=== PATIENT | male | born 1970 | race Caucasian/White ===

== ENCOUNTER 2018-11-26 16:28 | Observation (INO) | payer BC ==
--- NOTE | 2018-11-26 17:37 | EDM.PDOC ---
ED HPI GENERAL MEDICAL PROBLEM - General Chief Complaint: Behavioral/Psych Stated Complaint: ALCOHOL RELAPS Time Seen by Provider: 11/26/18 17:25 Source of Information: Reports: Patient, RN History Limitations: Reports: No Limitations - History of Present Illness INITIAL COMMENTS - FREE TEXT/NARRATIVE: 48 yr male presents with alcohol abuse and wants to go to detox. States he hasn 't had his shot since August for the alcohol abstinence. He had been working at [employer] and quit working because of his alcohol use. States he has been to detox many times and most recent in [place]. States no other medications and no use of any other substances. He has been having Jada 2 pints daily and just had a drink before coming into the ER. States he has no good reason for returning to alcohol and states no one to talk to about this. States he was going to AA and then quit because her was going to work. - Related Data Allergies Allergy/AdvReac Type Severity Reaction Status Date / Time No Known Allergies Allergy Verified 11/26/18 17:10 Home Meds: Home Meds NK [No Known Home Meds] 11/26/18 [History] ED ROS GENERAL - Review of Systems Review Of Systems: See Below Constitutional: Reports: No Symptoms HEENT: Reports: No Symptoms Respiratory: Reports: No Symptoms Cardiovascular: Reports: No Symptoms GI/Abdominal: Reports: No Symptoms : Reports: No Symptoms Musculoskeletal: Reports: Other (history of back pain and this has been good since his back injection) Skin: Reports: No Symptoms Neurological: Reports: No Symptoms Psychiatric: Reports: No Symptoms ED EXAM, GI/ABD - Physical Exam Exam: See Below Exam Limited By: No Limitations General Appearance: Alert, No Apparent Distress Ears: Normal External Exam, Hearing Grossly Normal Nose: Normal Inspection, Normal Mucosa Throat/Mouth: Normal Inspection, Normal Voice, No Airway Compromise Head: Atraumatic, Normocephalic Neck: Normal Inspection, Supple, Non-Tender Respiratory/Chest: No Respiratory Distress, Normal Breath Sounds Extremities: Normal Inspection, Normal Range of Motion, Non-Tender Neurological: Alert, Oriented, Normal Cognition Psychiatric: Normal Affect, Normal Mood Skin Exam: Warm, Dry, Normal Color Course - Vital Signs Last Recorded V/S: Last Vital Signs Temp 98.6 F 11/26/18 16:32 Pulse 83 11/26/18 16:32 Resp 20 11/26/18 16:32 BP 141/94 H 11/26/18 16:32 Pulse Ox 97 11/26/18 16:32 - Orders/Labs/Meds Orders: Active Orders 24 hr Category Date Time Status VITAMIN B1 (THIAMINE), BLOOD Stat Lab 11/26/18 17:47 Received Labs: Laboratory Tests 11/26/18 11/26/18 11/26/18 Range/Units 17:30 17:41 17:41 WBC 9.3 (4.0-11.0) K/uL RBC 5.10 (4.50-6.50) M/uL Hgb 17.0 (13.0-18.0) g/dL Hct 47.1 (40.0-54.0) % MCV 92 (76-96) fL MCH 33.3 H (27.0-32.0) pg MCHC 36.1 H (31.0-35.0) g/dL RDW 13.1 (11.0-16.0) % Plt Count 234 (150-400) K/uL MPV 9.5 (6.0-10.0) fL Neut % (Auto) 73.1 H (45.0-70.0) % Lymph % (Auto) 19.3 L (20.0-40.0) % [place] % (Auto) 7.1 (3.0-10.0) % Eos % (Auto) 0.3 L (1.0-5.0) % Baso % (Auto) 0.2 (0.0-0.5) % Neut # (Auto) 6.80 (2.00-7.50) K/uL Lymph # (Auto) 1.80 (1.50-4.00) K/uL [place] # (Auto) 0.66 (0.20-0.80) K/uL Eos # (Auto) 0.03 L (0.04-0.40) K/uL Baso # (Auto) 0.02 (0.02-0.10) K/uL Sodium 141 (136-145) mmol/L Potassium 3.3 L (3.5-5.1) mmol/L Chloride 101 (98-107) mmol/L Carbon Dioxide 26.1 (21.0-32.0) mmol/L Anion Gap 17.2 H (5.0-15.0) mmol/L BUN 12 (8-26) mg/dL Creatinine 1.06 (0.70-1.30) mg/dL Est Cr Clr Drug Dosing TNP Estimated GFR (MDRD) > 60 (>60) MLS/MIN BUN/Creatinine Ratio 11.3 (6-25) Glucose 101 H (74-100) mg/dL Calcium 8.6 (8.5-10.1) mg/dL Phosphorus 4.2 (2.5-4.9) mg/dL Magnesium 2.2 (1.8-2.4) mg/dL Total Bilirubin 0.6 (0.0-1.0) mg/dL AST 17 (15-37) U/L ALT 41 (12-78) U/L Alkaline Phosphatase 63 (46-116) U/L Total Protein 7.7 (6.4-8.2) g/dL Albumin 3.8 (3.4-5.0) g/dL Globulin 3.9 (2.2-4.2) g/dL Albumin/Globulin Ratio 1.0 (0.8-2.0) TSH, Ultra Sensitive 1.525 (0.358-3.740) uIU/mL Urine Opiates Screen (NEGATIVE) Ur Oxycodone Screen (NEGATIVE) Urine Methadone Screen (NEGATIVE) Ur Barbiturates Screen (NEGATIVE) Ur Tricyclics Screen (NEGATIVE) Ur Phencyclidine Scrn (NEGATIVE) Ur Amphetamine Screen (NEGATIVE) U Methamphetamines Scrn (NEGATIVE) Urine MDMA Screen (NEGATIVE) U Benzodiazepines Scrn (NEGATIVE) U Cocaine Metab Screen (NEGATIVE) U Marijuana (THC) Screen (NEGATIVE) Ethyl Alcohol 137.0 H (0.0-0.0) mg/dL 11/26/18 Range/Units 17:50 WBC (4.0-11.0) K/uL RBC (4.50-6.50) M/uL Hgb (13.0-18.0) g/dL Hct (40.0-54.0) % MCV (76-96) fL MCH (27.0-32.0) pg MCHC (31.0-35.0) g/dL RDW (11.0-16.0) % Plt Count (150-400) K/uL MPV (6.0-10.0) fL Neut % (Auto) (45.0-70.0) % Lymph % (Auto) (20.0-40.0) % [place] % (Auto) (3.0-10.0) % Eos % (Auto) (1.0-5.0) % Baso % (Auto) (0.0-0.5) % Neut # (Auto) (2.00-7.50) K/uL Lymph # (Auto) (1.50-4.00) K/uL [place] # (Auto) (0.20-0.80) K/uL Eos # (Auto) (0.04-0.40) K/uL Baso # (Auto) (0.02-0.10) K/uL Sodium (136-145) mmol/L Potassium (3.5-5.1) mmol/L Chloride (98-107) mmol/L Carbon Dioxide (21.0-32.0) mmol/L Anion Gap (5.0-15.0) mmol/L BUN (8-26) mg/dL Creatinine (0.70-1.30) mg/dL Est Cr Clr Drug Dosing Estimated GFR (MDRD) (>60) MLS/MIN BUN/Creatinine Ratio (6-25) Glucose (74-100) mg/dL Calcium (8.5-10.1) mg/dL Phosphorus (2.5-4.9) mg/dL Magnesium (1.8-2.4) mg/dL Total Bilirubin (0.0-1.0) mg/dL AST (15-37) U/L ALT (12-78) U/L Alkaline Phosphatase (46-116) U/L Total Protein (6.4-8.2) g/dL Albumin (3.4-5.0) g/dL Globulin (2.2-4.2) g/dL Albumin/Globulin Ratio (0.8-2.0) TSH, Ultra Sensitive (0.358-3.740) uIU/mL Urine Opiates Screen Negative (NEGATIVE) Ur Oxycodone Screen Negative (NEGATIVE) Urine Methadone Screen Negative (NEGATIVE) Ur Barbiturates Screen Negative (NEGATIVE) Ur Tricyclics Screen Negative (NEGATIVE) Ur Phencyclidine Scrn Negative (NEGATIVE) Ur Amphetamine Screen Negative (NEGATIVE) U Methamphetamines Scrn Negative (NEGATIVE) Urine MDMA Screen Negative (NEGATIVE) U Benzodiazepines Scrn Negative (NEGATIVE) U Cocaine Metab Screen Negative (NEGATIVE) U Marijuana (THC) Screen Negative (NEGATIVE) Ethyl Alcohol (0.0-0.0) mg/dL Departure - Departure Time of Disposition: 19:30 Disposition: Refer to Observation Condition: Good Clinical Impression: Alcohol abuse - Discharge Information *PRESCRIPTION DRUG MONITORING PROGRAM REVIEWED*: Not Applicable *COPY OF PRESCRIPTION DRUG MONITORING REPORT IN PATIENT EZ: Not Applicable Referrals: PCP,Unknown [Primary Care Provider] - Forms: ED Department Discharge Care Plan Goals: Transfer to observation bed for evening and then chemical dependency assist in am. Pt is alert and had something to eat and in agreement with this plan. - Problem List & Annotations (1) Alcohol abuse SNOMED Code(s): 59807226 Code(s): F10.10 - ALCOHOL ABUSE, UNCOMPLICATED Status: Acute Current Visit: Yes - Problem List Review Problem List Initiated/Reviewed/Updated: Yes - My Orders Last 24 Hours: My Active Orders 11/26/18 17:47 VITAMIN B1 (THIAMINE), BLOOD Stat - Assessment/Plan Last 24 Hours: My Active Orders 11/26/18 17:47 VITAMIN B1 (THIAMINE), BLOOD Stat Plan: Labs completed, will place pt on observation for evening and use CIWAA scale and use of Ativan as needed. Will transfer in am for chemical dependency treatment.
[2018-11-26] MEDS: LORazepam 0.5 MG Tab PO PRN ×2 (21:01→21:41)
--- NOTE | 2018-11-27 12:21 | PCM.DCSUM1 ---
Discharge Summary - Hospital Course HPI Initial Comments: 48 yr male presented to ER last night with alcohol abuse and seeking treatment. Attempt to contact facilities for this, unable to locate accepting facility. Pt placed on observation until am. Contacted [facility] in [place], [place] is able to admit him for detox and need pt to have transportation there and back home. Contacted [facility] for assist and unable to transport pt. Pt has tried a few friends and unable to get a public transit bus driver for this. [place] is the nearest detox center with an available bed and is about 150 miles from this location. Pt reports he was continuing to drink Jada, 2 pints for the last several days and up until the point of his presentation to the ER at 1700 last night. He has slept through the night and did have Ativan 0.5 mg PO last night for anxiety and to assist with sleep. States he had been getting a monthly injection to assist with alcohol relapse and he had a couple doses and missed the next dose, started drinking alcohol and has been missing work. States his daughter lives in the area and the mother of his children. States she can give him a ride home on Monday. Pt would like to get started on these monthly shots again and wants to start feeling better again. No other transportation available for him. Will transport by [facility] ambulance to [place]. DT potential for at least 72 hour and pt needs safe transport to [facility]. [facility] ambulance contacted for transport. Diagnosis: Stroke: No - Discharge Data Discharge Date: 11/27/18 Discharge Disposition: DC/Tfer to Other Condition: Good - Discharge Diagnosis/Problem(s) (1) Alcohol abuse SNOMED Code(s): 63168766 ICD Code: F10.10 - ALCOHOL ABUSE, UNCOMPLICATED Status: Acute - Discharge Plan *PRESCRIPTION DRUG MONITORING PROGRAM REVIEWED*: Not Applicable *COPY OF PRESCRIPTION DRUG MONITORING REPORT IN PATIENT EZ: Not Applicable Home Medications: Home Meds NK [No Known Home Meds] 11/26/18 [History] Forms: ED Department Discharge Referrals: PCP,Unknown [Primary Care Provider] - - Discharge Summary/Plan Comment DC Time >30 min.: Yes (Counseled on detox and start of monthly injections to prevent relapse.) Discharge Summary/Plan Comment: Discharge pt to detox, [place], [place]. [facility] transport required , no other transportation is available and potential for DT with alcohol use/ abuse. - General Info Date of Service: 11/27/18 Admission Dx/Problem (Free Text: alcohol abuse, detox needed Functional Status: Reports: Pain Controlled, Tolerating Diet, Ambulating, Urinating - Review of Systems General: Reports: No Symptoms. Denies: Fever, Weakness HEENT: Reports: No Symptoms. Denies: Glasses, Headaches Pulmonary: Reports: No Symptoms. Denies: Shortness of Breath, Cough Cardiovascular: Reports: No Symptoms. Denies: Chest Pain, Palpitations Gastrointestinal: Reports: No Symptoms. Denies: Abdominal Pain, Decreased Appetite Genitourinary: Reports: No Symptoms. Denies: Dysuria Musculoskeletal: Reports: No Symptoms Skin: Reports: No Symptoms Neurological: Reports: No Symptoms. Denies: Trouble Speaking, Difficulty Walking, Weakness Psychiatric: Reports: Other (alcohol abuse) - Patient Data Vitals - Most Recent: Last Vital Signs Temp 98.1 F 11/27/18 08:00 Pulse 64 11/27/18 08:00 Resp 18 11/27/18 08:00 BP 128/92 H 11/27/18 08:00 Pulse Ox 99 11/27/18 08:00 Weight - Most Recent: 195 lb Lab Results - Last 24 hrs: Laboratory Results - last 24 hr 11/26/18 11/26/18 11/26/18 Range/Units 17:30 17:41 17:41 WBC 9.3 (4.0-11.0) K/uL RBC 5.10 (4.50-6.50) M/uL Hgb 17.0 (13.0-18.0) g/dL Hct 47.1 (40.0-54.0) % MCV 92 (76-96) fL MCH 33.3 H (27.0-32.0) pg MCHC 36.1 H (31.0-35.0) g/dL RDW 13.1 (11.0-16.0) % Plt Count 234 (150-400) K/uL MPV 9.5 (6.0-10.0) fL Neut % (Auto) 73.1 H (45.0-70.0) % Lymph % (Auto) 19.3 L (20.0-40.0) % [place] % (Auto) 7.1 (3.0-10.0) % Eos % (Auto) 0.3 L (1.0-5.0) % Baso % (Auto) 0.2 (0.0-0.5) % Neut # (Auto) 6.80 (2.00-7.50) K/uL Lymph # (Auto) 1.80 (1.50-4.00) K/uL [place] # (Auto) 0.66 (0.20-0.80) K/uL Eos # (Auto) 0.03 L (0.04-0.40) K/uL Baso # (Auto) 0.02 (0.02-0.10) K/uL Sodium 141 (136-145) mmol/L Potassium 3.3 L (3.5-5.1) mmol/L Chloride 101 (98-107) mmol/L Carbon Dioxide 26.1 (21.0-32.0) mmol/L Anion Gap 17.2 H (5.0-15.0) mmol/L BUN 12 (8-26) mg/dL Creatinine 1.06 (0.70-1.30) mg/dL Est Cr Clr Drug Dosing TNP Estimated GFR (MDRD) > 60 (>60) MLS/MIN BUN/Creatinine Ratio 11.3 (6-25) Glucose 101 H (74-100) mg/dL Calcium 8.6 (8.5-10.1) mg/dL Phosphorus 4.2 (2.5-4.9) mg/dL Magnesium 2.2 (1.8-2.4) mg/dL Total Bilirubin 0.6 (0.0-1.0) mg/dL AST 17 (15-37) U/L ALT 41 (12-78) U/L Alkaline Phosphatase 63 (46-116) U/L Total Protein 7.7 (6.4-8.2) g/dL Albumin 3.8 (3.4-5.0) g/dL Globulin 3.9 (2.2-4.2) g/dL Albumin/Globulin Ratio 1.0 (0.8-2.0) TSH, Ultra Sensitive 1.525 (0.358-3.740) uIU/mL Urine Opiates Screen (NEGATIVE) Ur Oxycodone Screen (NEGATIVE) Urine Methadone Screen (NEGATIVE) Ur Barbiturates Screen (NEGATIVE) Ur Tricyclics Screen (NEGATIVE) Ur Phencyclidine Scrn (NEGATIVE) Ur Amphetamine Screen (NEGATIVE) U Methamphetamines Scrn (NEGATIVE) Urine MDMA Screen (NEGATIVE) U Benzodiazepines Scrn (NEGATIVE) U Cocaine Metab Screen (NEGATIVE) U Marijuana (THC) Screen (NEGATIVE) Ethyl Alcohol 137.0 H (0.0-0.0) mg/dL 11/26/18 Range/Units 17:50 WBC (4.0-11.0) K/uL RBC (4.50-6.50) M/uL Hgb (13.0-18.0) g/dL Hct (40.0-54.0) % MCV (76-96) fL MCH (27.0-32.0) pg MCHC (31.0-35.0) g/dL RDW (11.0-16.0) % Plt Count (150-400) K/uL MPV (6.0-10.0) fL Neut % (Auto) (45.0-70.0) % Lymph % (Auto) (20.0-40.0) % [place] % (Auto) (3.0-10.0) % Eos % (Auto) (1.0-5.0) % Baso % (Auto) (0.0-0.5) % Neut # (Auto) (2.00-7.50) K/uL Lymph # (Auto) (1.50-4.00) K/uL [place] # (Auto) (0.20-0.80) K/uL Eos # (Auto) (0.04-0.40) K/uL Baso # (Auto) (0.02-0.10) K/uL Sodium (136-145) mmol/L Potassium (3.5-5.1) mmol/L Chloride (98-107) mmol/L Carbon Dioxide (21.0-32.0) mmol/L Anion Gap (5.0-15.0) mmol/L BUN (8-26) mg/dL Creatinine (0.70-1.30) mg/dL Est Cr Clr Drug Dosing Estimated GFR (MDRD) (>60) MLS/MIN BUN/Creatinine Ratio (6-25) Glucose (74-100) mg/dL Calcium (8.5-10.1) mg/dL Phosphorus (2.5-4.9) mg/dL Magnesium (1.8-2.4) mg/dL Total Bilirubin (0.0-1.0) mg/dL AST (15-37) U/L ALT (12-78) U/L Alkaline Phosphatase (46-116) U/L Total Protein (6.4-8.2) g/dL Albumin (3.4-5.0) g/dL Globulin (2.2-4.2) g/dL Albumin/Globulin Ratio (0.8-2.0) TSH, Ultra Sensitive (0.358-3.740) uIU/mL Urine Opiates Screen Negative (NEGATIVE) Ur Oxycodone Screen Negative (NEGATIVE) Urine Methadone Screen Negative (NEGATIVE) Ur Barbiturates Screen Negative (NEGATIVE) Ur Tricyclics Screen Negative (NEGATIVE) Ur Phencyclidine Scrn Negative (NEGATIVE) Ur Amphetamine Screen Negative (NEGATIVE) U Methamphetamines Scrn Negative (NEGATIVE) Urine MDMA Screen Negative (NEGATIVE) U Benzodiazepines Scrn Negative (NEGATIVE) U Cocaine Metab Screen Negative (NEGATIVE) U Marijuana (THC) Screen Negative (NEGATIVE) Ethyl Alcohol (0.0-0.0) mg/dL Med Orders - Current: Current Medications Lorazepam (Ativan) 0.5 mg PO Q4H PRN; Protocol PRN Reason: Anxiety Last Admin: 11/26/18 21:41 Dose: 0.5 mg - Exam General: Reports: Alert, Cooperative, No Acute Distress HEENT: Reports: Pupils Equal, Pupils Reactive Neck: Reports: Supple Lungs: Reports: Clear to Auscultation, Normal Respiratory Effort Cardiovascular: Reports: Regular Rate, Regular Rhythm GI/Abdominal Exam: Soft, Non-Tender Extremities: Normal Range of Motion, Non-Tender, No Pedal Edema Skin: Reports: Warm, Dry Neurological: Reports: No New Focal Deficit Psy/Mental Status: Reports: Alert, Normal Affect, Normal Mood
== END 2018-11-27 12:50 | disposition other institution (70) ==
LOC: LB.ED 16:28 → LB.MS 19:20 → UNDOADMOB 19:20 → LB.MS 19:35
PROVIDERS: ADMIT Nurse Practitioner Family; ATTEND Nurse Practitioner Family
DX: F10.10 Alcohol abuse, uncomplicated (principal); Y90.6 Blood alcohol level of 120-199 mg/100 ml
CPT/HCPCS: 36415; 80053; 80307; 83735; 84100; 84425; 84443; 85025; 99284; A0425; A0429; A9270-GY; G0378; G0480